=== PATIENT | female | born 1960 | race Caucasian/White ===

== ENCOUNTER 2019-12-27 06:59 | Day surgery (SDC) | payer OTHER ==
[2019-12-22 11:48] LABS: ABSOLUTE BASOPHILS # (AUTO) 0.1 10^3/uL (0.0-0.2); ABSOLUTE EOSINOPHILS # (AUTO) 0.1 10^3/uL (0.0-0.6); ABSOLUTE LYMPHOCYTES (AUTO) 1.6 10^3/uL (0.5-4.7); ABSOLUTE MONOCYTES (AUTO) 0.4 10^3/uL (0.1-1.4); ABSOLUTE NEUT (AUTO) 2.2 10^3/uL (1.7-8.2); BASOPHILS % (AUTO) 1.2 % (0-2); EOSINOPHILS % (AUTO) 2.4 % (0-6); HEMATOCRIT 42.7 % (36.0-47.0); HEMOGLOBIN 14.8 g/dL (12.0-15.5); LYMPHOCYTES % (AUTO) 35.8 % (13-45); MEAN CORPUSCULAR HEMOGLOBIN 32.9 pg (27.0-33.4); MEAN CORPUSCULAR HGB CONC 34.7 g/dL (32.0-36.0); MEAN CORPUSCULAR VOLUME 95 fl (80-97); MONOCYTES % (AUTO) 10.1 % (3-13); PLATELET COUNT 289 10^3/uL (150-450); RED CELL DISTRIBUTION WIDTH 13.9 % (11.5-14.0); SEGMENTED NEUTROPHILS % (AUTO) 50.5 % (42-78); TOTAL CELLS COUNTED % (AUTO) 100 %; WHITE BLOOD COUNT 4.4 10^3/uL (4.0-10.5)
[2019-12-22 12:18] LABS: ANION GAP 10 (5-19); BLOOD UREA NITROGEN 12 mg/dL (7-20); CARBON DIOXIDE 24 mmol/L (22-30); CHLORIDE 103 mmol/L (98-107); GLUCOSE 97 mg/dL (75-110); POTASSIUM 4.8 mmol/L (3.6-5.0)
[~2019-12-27 06:59] MED LIST: CEFAZOLIN 2 GM/D5W RTU 2 GM/50 ML RTUPB IV PRN; EPHEDRINE SULFATE INJ 50 MG/1 ML AMPULE ONE; FENTANYL CITRATE INJ/PF 250 MCG/5 ML AMPULE ONE; HYDROMORPHONE HCL INJ/PF 2 MG/ML AMPULE ONE; LACTATED RINGERS 1000 ML IV PRN; LIDOCAINE 0.5% INJ-PF (5 MG/ML) 50 ML SDV SUBCUT PRN; MIDAZOLAM 2 MG/2 ML INJ ONE; PROPOFOL INJ 200 MG/20 ML VIAL IV ONE
[2019-12-27] MEDS ORDERED: CEFAZOLIN 2 GM/D5W RTU 2 GM/50 ML RTUPB IV ONE (07:34)
[2019-12-27] MEDS ORDERED: LIDOCAINE 2%/EPINEPHRINE INJ 1.7 ML CARTRIDGE ONE (08:30)
[2019-12-27] MEDS ORDERED: OXYMETAZOLINE HCL 0.05% NASAL SPRAY 15 ML BOTTLE ONE (08:31)
[2019-12-27] MEDS ORDERED: OXYCODONE-ACETAMINOPHEN 5-325 MG TABLET PO PRN (09:23)
[2019-12-27] MEDS ORDERED: ONDANSETRON HCL INJ/PF 4 MG/2 ML SDV IV PRN ×2 (09:23→11:50)
[2019-12-27] MEDS ORDERED: PROMETHAZINE HCL INJ 25 MG/1 ML VIAL IV PRN ×2 (09:23)
[2019-12-27] MEDS ORDERED: DIPHENHYDRAMINE HCL 50 MG/ML VIAL IV PRN (09:23)
[2019-12-27] MEDS ORDERED: FENTANYL CITRATE INJ/PF 100 MCG/2 ML AMPUL IV PRN ×3 (09:23)
[2019-12-27] MEDS ORDERED: MEPERIDINE HCL/PF INJ 25 MG/1 ML DISP.SYRIN IV PRN (09:23)
[2019-12-27] MEDS ORDERED: MORPHINE SULFATE 10 MG/ML INJ IV PRN (09:23)
[2019-12-27] MEDS: FENTANYL CITRATE INJ/PF 100 MCG/2 ML AMPUL ONE ×2 (11:09→11:20)
--- NOTE | 2019-12-27 11:21 | Operative Report ---
Operative Report-[facility] Operative Report: Date: 27 December 2019 History: 59-year-old female with a multinodular thyroid. Patient has two n odules on the right lobe, which underwent cytologic analysis. The FNA results were consistent with a Nunez class III, which is atypia of undetermined significance, for one of the nodules and a Nunez class II for the other nodule. Patient presents today for a right thyroid lobectomy. A total thyroidectomy was discussed with the patient, however she decided to proceed with just the right thyroid lobectomy. Informed consent was obtained from the patient Preoperative Diagnosis: 1. Multi-nodular thyroid with dominant nodules right lobe Postoperative Diagnosis: Same as above Procedure: 1. Right thyroid lobectomy 2. Flexible fiber optic nasopharyngolaryngoscope Surgeon: Mickey Rodríguez MD, FACS. [facility] Assisting surgeon: Bola Raymundo DO Anesthesia: General using a laryngeal EMG tube Description of the procedure: After receiving informed consent, the patient was brought to the operating room and placed supine on the operating room table. After successful induction and intubation using a laryngeal EMG tube, a shoulder roll was place to extend the neck. The nerve integrity monitor was calibrated and found to be functioning normally. The planned incision site was marked with a surgical pen and infiltrated with 2% Lidocaine with 1 to 100,000 epinephrine. The patient was then prepped and draped in a sterile fashion. A 15 blade was used to make the incision through the skin, subcutaneous layer and platysma. Using Bovee electrocautery, sub platysmal flaps were elevated superiorly and inferiority. Midline was identified and the strap muscles were . The right sternothyroid muscle was identified and from the thyroid lobe. Attention was then directed superiorly where the superior lobe of the thyroid was carefully from surrounding tissue. The superior vasculature was identified and then sealed and ligated with the Ligasure. A superior parathyroid prospect was identified and preserved. Attention was then directed inferiority, where the inferior lobe of the thyroid was carefully dissected from surrounding tissue. The trachea was a identified medially. The inferior thyroid vascularure was identified and then sealed and ligated using the Ligasure. An inferior parathyroid prospect was identified and preserved. The dissection then continued from a lateral to medial direction moving towards Berrys ligament.The recurrent laryngeal nerve was identified and stimulated using the Prass probe. It was found to be intact and functioning normally.The dissection then continued medially, over the anterior trachea, releasing Berrys ligament. The isthmus was dissected from the anterior tracheal wall and transected in a left paramedian position. The wound was irrigated with copious amounts of normal Saline. No bleeding was n oted. Surgicel was placed into the thyroid bed. The wound was closed in layers. The strap muscles, platysma and subcutaneous tissue were closed using 4-0 Monocryl. The dermal layer was closed using 4-0 Monocryl. Dermabond, mastisol and steristrips were then applied. A small dressing placed. The patient was then given back to anesthesia who successfully extubated the patient without any complications. A flexible fiber-optic laryngoscope was the. placed through the nasal cavity down to the laryngeal inlet. The vocal cords were visualized and found to be mobile bilaterally. Estimated blood loss: 10 mL Fluids: 800 mL The patient was then transported to the post anesthesia care unit in stable condition with spontaneous respirations.
[2019-12-27] MEDS ORDERED: MIDAZOLAM 2 MG/2 ML INJ ONE (11:23)
[2019-12-27] MEDS ORDERED: HYDROCODONE/ACETAMINOPHEN 5-325 MG TABLET PO PRN (11:50)
[2019-12-27] MEDS ORDERED: HYDROCODONE/ACETAMINOPHEN 5-325 MG TABLET ONE (12:14)
[2019-12-27] MEDS ORDERED: ACETAMINOPHEN 1,000 MG/100 ML RTUPB IV ONE ×2 (13:06→13:15)
[2019-12-27 13:21] VITALS: BP 139/93
[2019-12-27] MEDS ORDERED: DIPHENHYDRAMINE HCL 50 MG/ML VIAL ONE (13:58)
[2019-12-27] MEDS ORDERED: ONDANSETRON HCL INJ/PF 4 MG/2 ML SDV ONE (13:58)
[2019-12-27] MEDS ORDERED: SUCCINYLCHOLINE CHLORIDE INJ 200 MG/10 ML VIAL ONE (13:58)
[2019-12-27] MEDS ORDERED: DEXAMETHASONE SOD PHOSPHATE INJ 4 MG/1 ML VIAL ONE (13:58)
== END 2019-12-27 13:50 | disposition home or self-care (01) ==
LOC: OROUT 06:59
PROVIDERS: ATTEND Otolaryngology
DX: E04.2 Nontoxic multinodular goiter (principal); Z03.818 Encounter for observation for suspected exposure to other biological agents ruled out; K13.21 Leukoplakia of oral mucosa, including tongue; F45.8 Other somatoform disorders; Z79.899 Other long term (current) drug therapy
CPT/HCPCS: 36415; 85025; 80048; 88307 ×2; 00320; 60220; 92511; U0003; J2250; J3490 ×3; J1100; J1200; J3010 ×2; J1170; J0330; J2405; J2704; J0690; J0131; C9803; 320; 87635